=== PATIENT | male | born 1965 | race Caucasian/White ===

== ENCOUNTER → 2017-07-08 | Outpatient (CLI) | payer BC, OTHER ==
--- NOTE | 2017-07-08 13:23 | XR ---
EXAMINATION TYPE: XR chest 2V DATE OF EXAM: 07/08/2017 COMPARISON: NONE INDICATION: Cough x2 weeks short of breath TECHNIQUE: Frontal and lateral views of the chest are obtained. FINDINGS: The heart size is normal. The pulmonary vasculature is normal. The lungs are clear. IMPRESSION: 1. No acute pulmonary process.
== END | disposition home or self-care (01) ==
LOC: RADXRMAIN 11:06
PROVIDERS: ATTEND Family Medicine
DX: R05 Cough (principal); R06.02 Shortness of breath
CPT/HCPCS: 71046

== ENCOUNTER → 2018-03-29 | Outpatient (CLI) | payer BC ==
--- NOTE | 2018-03-29 17:27 | MR ---
EXAMINATION TYPE: MR cervical spine wo con DATE OF EXAM: 03/29/2018 COMPARISON: Neck pain HISTORY: Neuralgia /QURESHI/Neck pain x 1 month TECHNIQUE: Multiplanar, multisequence images of the cervical spine were acquired. C2-C3: No evidence for degenerative disc disease. No disc bulge/herniation or protrusion. No Canal stenosis. Foramina are patent bilaterally. C3-C4: Posterior broad-based disc bulge causes mild anterior mass effect on the thecal sac, small pennie tral posterior disc herniation causes only slight anterior mass effect centrally. Lateral extension o f endplate disc complex encroaches greater on the left neural foramen than right. C4-C5: Small central posterior disc herniation noted, circumferential extension of endplate disc comp chela encroaches on the foramina bilaterally, there is mild anterior mass effect on the thecal sac due to broad-based disc bulge. C5-C6: Posterior extension of endplate disc complex likely contacts anterior cervical cord. There is moderate central canal stenosis. Lateral extension of endplate disc complex causes bilateral foramina l encroachment. C6-C7: Posterior extension of endplate disc complex causes anterior mass effect on the thecal sac, la teral extension causes some foraminal encroachment bilaterally. 1 minimal spinal stenosis. C7-T1: No evidence for degenerative disc disease. No disc bulge/herniation or protrusion. No Canal stenosis. Foramina are patent bilaterally. Cervical segments are intact. There is normal alignment. Cervical spinal cord is of normal signal. Craniovertebral junction relationships are within normal limits. Cervical vertebral bodies show pre served height and alignment, there is multilevel spondylosis, endplate discogenic marrow signal delcid e, loss of disc height and signal is greatest at C5-6 and C6-7. Immediate cystic focus is present at the level of the piriform sinus on the right and shows a nonaggressive appearance. IMPRESSION: Degenerative disc disease and additional findings above.
== END | disposition home or self-care (01) ==
LOC: RADMRIMAIN 11:28
PROVIDERS: ATTEND Psychiatry & Neurology Neurology
DX: M48.02 Spinal stenosis, cervical region (principal); M50.21 Other cervical disc displacement, high cervical region; M50.30 Other cervical disc degeneration, unspecified cervical region; M47.812 Spondylosis without myelopathy or radiculopathy, cervical region
CPT/HCPCS: 72141

== ENCOUNTER 2020-03-29 09:59 | Emergency (ER) | payer BC ==
[2020-03-29 10:13] VITALS: BP 140/93; PULSE 79; RESP 18; TEMP 98.5
--- NOTE | 2020-03-29 10:24 | ED ---
Skin/Abscess/FB HPI - General Chief complaint: Skin/Abscess/Foreign Body Stated complaint: knee(bug bite infection) Time Seen by Provider: 03/29/20 10:14 Source: patient, RN notes reviewed Mode of arrival: ambulatory Limitations: no limitations - History of Present Illness Initial comments: This a 55-year-old male presents emergency Department chief complaint of infection left leg. Patient states that this started on Wednesday above his left knee. Patient states that it's increase in size of redness. He states he has no pain with range of motion of his left knee. No fevers chills no night sweats no chills. Patient states is occasionally some drainage. Patient denies any other complaints. He states he was up in [place] states that he may have been bitten by something. - Related Data Home Medications Medication Instructions Recorded Confirmed Multivitamin [Men's Multi-Vitamin] 1 tab PO DAILY 12/07/13 12/06/14 Naproxen [Naprosyn] 500 mg PO DIRECTED PRN 12/07/13 12/06/14 Previous Rx's Medication Instructions Recorded Cephalexin [Keflex] 500 mg PO Q6HR #40 cap 03/29/20 Sulfamethox-Tmp 800-160Mg [Bactrim 1 each PO Q12HR #20 tab 03/29/20 Ds] Allergies Allergy/AdvReac Type Severity Reaction Status Date / Time cats Allergy Unknown Uncoded 03/29/20 10:13 pine tree Allergy Unknown Uncoded 03/29/20 10:13 Review of Systems ROS Statement: Those systems with pertinent positive or pertinent negative responses have been documented in the HPI. ROS Other: All systems not noted in ROS Statement are negative. Past Medical History Past Medical History: Blood Disorder, Musculoskeletal Disorder Additional Past Medical History / Comment(s): STATES WAS TOLD BY DR VAZQUEZ HAS A BLOD CLOTTING DISORDER "PI" History of Any Multi-Drug Resistant Organisms: None Reported Past Surgical History: Joint Replacement, Orthopedic Surgery Additional Past Surgical History / Comment(s): ARTHROSCOPY KNEE, HEEL SPUR, ANTERIOR APPROACH RIGHT HIP TOTAL ARTHOPLASTY Past Anesthesia/Blood Transfusion Reactions: No Reported Reaction Past Psychological History: No Psychological Hx Reported Smoking Status: Never smoker Past Alcohol Use History: Occasional Past Drug Use History: None Reported General Exam Limitations: no limitations General appearance: alert, in no apparent distress Head exam: Present: atraumatic, normocephalic, normal inspection Respiratory exam: Present: normal lung sounds bilaterally. Absent: respiratory distress, wheezes, rales, rhonchi, stridor Cardiovascular Exam: Present: regular rate, normal rhythm, normal heart sounds. Absent: systolic murmur, diastolic murmur, rubs, gallop, clicks Extremities exam: Present: other (Left knee patient's full range of motion neurovascular intact superior to left knee there is small open wound with proximal mid to some is a surrounding erythema there is no tenderness the left groin, popliteal region no palpable lymph nodes) Course Vital Signs 03/29/20 10:10 Temperature 98.5 F Pulse Rate 79 Respiratory 18 Rate Blood Pressure 140/93 O2 Sat by Pulse 97 Oximetry Medical Decision Making - Medical Decision Making X-ray does not reveal any foreign body, gas within the tissue. Patient will be discharged on oral antibiotics. Patient has left leg cellulitis there is no drainable abscess. Patient was given strict return parameters and advised close follow-up next 24-48 hours. Disposition Clinical Impression: Cellulitis of left leg Disposition: HOME SELF-CARE Condition: Stable Instructions (If sedation given, give patient instructions): Cellulitis (ED) Additional Instructions: Please return to the Emergency Department if symptoms worsen or any other concerns. Prescriptions: Sulfamethox-Tmp 800-160Mg [Bactrim Ds] 1 each PO Q12HR #20 tab Cephalexin [Keflex] 500 mg PO Q6HR #40 cap Is patient prescribed a controlled substance at d/c from ED?: No Referrals: Basil Sosa DO [Primary Care Provider] - 1-2 days Time of Disposition: 10:50
--- NOTE | 2020-03-29 10:56 | XR ---
EXAMINATION TYPE: XR knee complete LT DATE OF EXAM: 03/29/2020 COMPARISON: None HISTORY: Infection pain swelling TECHNIQUE: Three-view left knee FINDINGS: There is narrowing of the medial compartment joint space. Lateral compartment joint spaces preserved. Small joint effusion may be present. No acute fractures or dislocations are evident. There is prominent soft tissue swelling over the superficial subcutaneous tissues over the patella. IMPRESSION: 1. Superficial soft tissue swelling anteriorly. 2. Mild degenerative joint changes medial compartment left knee
== END 2020-03-29 10:55 | disposition home or self-care (01) ==
LOC: EC 09:59
DX: L03.116 Cellulitis of left lower limb (principal); Z96.641 Presence of right artificial hip joint; Z91.048 Other nonmedicinal substance allergy status
CPT/HCPCS: 99283

== ENCOUNTER 2020-03-30 01:14 | Emergency (ER) | payer BC ==
[2020-03-30 01:19] VITALS: BP 121/77; PULSE 71; RESP 20; TEMP 98.2
[2020-03-30] MEDS ORDERED: CLINDAMYCIN 150 MG CAP PO STA (01:47)
--- NOTE | 2020-03-30 01:51 | ED ---
Skin/Abscess/FB HPI - General Chief complaint: Skin/Abscess/Foreign Body Stated complaint: Infected insect bite Time Seen by Provider: 03/30/20 01:23 Source: patient, family Mode of arrival: ambulatory Limitations: no limitations - History of Present Illness Initial comments: Patient is 55-year-old male presenting to emergency Department with a chief co mplaint of a skin infection. Patient states recently he was [place] [facility] and he suspecting is developed an insect bite on his left leg near the knee. Patient states he is seeing erythema developing in the region since yesterday. States he was in the emergency department earlier today and was prescribed medication. Patient reports so for years taken 3 doses of the Keflex and the infection is almost double the size. Denies any discharge from the region but there is some tenderness. States he has no pain in the knee and has full range of motion. Denies any night sweats or fevers or chills. Denies taking medication to alleviate the symptoms. - Related Data Home Medications Medication Instructions Recorded Confirmed Multivitamin [Men's Multi-Vitamin] 1 tab PO DAILY 12/07/13 12/06/14 Naproxen [Naprosyn] 500 mg PO DIRECTED PRN 12/07/13 12/06/14 Previous Rx's Medication Instructions Recorded Cephalexin [Keflex] 500 mg PO Q6HR #40 cap 03/29/20 Sulfamethox-Tmp 800-160Mg [Bactrim 1 each PO Q12HR #20 tab 03/29/20 Ds] Clindamycin HCl 300 mg PO Q6HR #28 cap 03/30/20 Allergies Allergy/AdvReac Type Severity Reaction Status Date / Time cats Allergy Unknown Uncoded 03/30/20 01:19 pine tree Allergy Unknown Uncoded 03/30/20 01:19 Review of Systems ROS Statement: Those systems with pertinent positive or pertinent negative responses have been documented in the HPI. ROS Other: All systems not noted in ROS Statement are negative. Past Medical History Past Medical History: Blood Disorder, Musculoskeletal Disorder Additional Past Medical History / Comment(s): STATES WAS TOLD BY DR VAZQUEZ HAS A BLOD CLOTTING DISORDER "PI" History of Any Multi-Drug Resistant Organisms: None Reported Past Surgical History: Joint Replacement, Orthopedic Surgery Additional Past Surgical History / Comment(s): ARTHROSCOPY KNEE, HEEL SPUR, ANTERIOR APPROACH RIGHT HIP TOTAL ARTHOPLASTY Past Anesthesia/Blood Transfusion Reactions: No Reported Reaction Past Psychological History: No Psychological Hx Reported Smoking Status: Never smoker Past Alcohol Use History: Occasional Past Drug Use History: None Reported General Exam Limitations: no limitations General appearance: alert, in no apparent distress Head exam: Present: atraumatic, normocephalic, normal inspection Eye exam: Present: normal appearance, PERRL, EOMI Pupils: Present: normal accommodation ENT exam: Present: normal exam, normal oropharynx, mucous membranes moist Neck exam: Present: normal inspection, full ROM. Absent: tenderness Respiratory exam: Present: normal lung sounds bilaterally. Absent: respiratory distress, wheezes, rales Cardiovascular Exam: Present: regular rate, normal rhythm, normal heart sounds Extremities exam: Present: full ROM, tenderness (Tenderness at the infection site.), normal capillary refill, other (+2 ulnar and radial pulses bilateral. +2 dorsalis pedis and posterior tibials laterally.). Absent: normal inspection (Cellulitis on the left knee measuring approximately 15 cm in diameter. No pustular drainage or any fluctuance. Induration in the center measuring approximately 3 cm in diameter.), pedal edema, joint swelling, calf tenderness Back exam: Present: normal inspection, full ROM. Absent: tenderness, CVA tenderness (R), CVA tenderness (L) Neurological exam: Present: alert, oriented X3, normal gait Psychiatric exam: Present: normal affect, normal mood Skin exam: Present: warm, dry, intact, normal color Course Vital Signs 03/30/20 01:15 Temperature 98.2 F Pulse Rate 71 Respiratory 20 Rate Blood Pressure 121/77 O2 Sat by Pulse 99 Oximetry Medical Decision Making - Medical Decision Making patient is a 55-year-old male presenting to the emergency department with chief complaint of a skin infection. Patient is currently on Keflex and Bactrim. I marked the infected site which apparently has increased in size since yesterday. On physical examination, this appears to cellulitis with no abscess. Patient was started on clindamycin instead advised to stop the other antibiotics. He was advised to monitor for increasing the size of infection if he goes past the marked lines. He denies any night sweats fevers or chills. Strict return parameters were thoroughly discussed the patient is attending agreeable. Case discussed with physician. Disposition Clinical Impression: Cellulitis of left leg Disposition: HOME SELF-CARE Condition: Stable Instructions (If sedation given, give patient instructions): Cellulitis (DC) Additional Instructions: Take prescribed medication as directed. Monitor for signs of infection spreading past the marked lines. Return to emergency department if symptoms worsen. Prescriptions: Clindamycin HCl 300 mg PO Q6HR #28 cap Is patient prescribed a controlled substance at d/c from ED?: No Referrals: Basil Sosa DO [Primary Care Provider] - 1-2 days Time of Disposition: 01:47
== END 2020-03-30 02:23 | disposition home or self-care (01) ==
LOC: EC 01:14
DX: L03.116 Cellulitis of left lower limb (principal); Z96.641 Presence of right artificial hip joint; Z91.048 Other nonmedicinal substance allergy status
CPT/HCPCS: 99282

== ENCOUNTER → 2020-05-08 | Outpatient (CLI) | payer BC | END | disposition home or self-care (01) | LOC: LABWHC1 13:43 | PROVIDERS: ATTEND Family Medicine | DX: Z03.818 Encounter for observation for suspected exposure to other biological agents ruled out (principal) | CPT/HCPCS: U0003; C9803 ==

== ENCOUNTER 2021-11-08 22:27 | Emergency (ER) | payer BC ==
[2021-11-08 22:58] VITALS: RESP 18
[2021-11-08] MEDS ORDERED: DIPH,PERTUS(ACELL)TETVAC-LF 0.5 ML VIAL IM ONE (23:13)
[2021-11-08] MEDS ORDERED: BACITRACIN OINT 1 EACH PACKET TOPICAL ONE (23:13)
[2021-11-08] MEDS ORDERED: LIDOCAINE 1% INJ 10MG/ML (5 ML VIAL-PF) SQ ONE (23:13)
--- NOTE | 2021-11-09 00:21 | ED ---
General Adult HPI - General Chief complaint: Wound/Laceration Stated complaint: Right hand laceration Time Seen by Provider: 11/08/21 23:00 Source: patient, RN notes reviewed Mode of arrival: ambulatory Limitations: no limitations - History of Present Illness Initial comments: 56-year-old male presents to the emergency department for evaluation of a wound to the right hand sustained this evening when he cut his hand on a piece of sheet metal. Last tetanus shot is unknown. Currently has small amount of ongoing bleeding from the wound. Denies any loss of sensation or range of motion. No other injuries. States pain is minimal. - Related Data Home Medications Medication Instructions Recorded Confirmed Multivitamin [Men's Multi-Vitamin] 1 tab PO DAILY 12/07/13 12/06/14 Naproxen [Naprosyn] 500 mg PO DIRECTED PRN 12/07/13 12/06/14 Previous Rx's Medication Instructions Recorded Cephalexin [Keflex] 500 mg PO Q6HR #40 cap 03/29/20 Sulfamethox-Tmp 800-160Mg [Bactrim 1 each PO Q12HR #20 tab 03/29/20 Ds] Clindamycin HCl 300 mg PO Q6HR #28 cap 03/30/20 Allergies Allergy/AdvReac Type Severity Reaction Status Date / Time cats Allergy Unknown Uncoded 11/08/21 22:58 pine tree Allergy Unknown Uncoded 11/08/21 22:58 Review of Systems ROS Statement: Those systems with pertinent positive or pertinent negative responses have been documented in the HPI. ROS Other: All systems not noted in ROS Statement are negative. Past Medical History Past Medical History: Blood Disorder, Musculoskeletal Disorder Additional Past Medical History / Comment(s): STATES WAS TOLD BY DR VAZQUEZ HAS A BLOD CLOTTING DISORDER "PI" History of Any Multi-Drug Resistant Organisms: MRSA Date of last positivie culture/infection: 04/01/20 MDRO Source:: KNEE Past Surgical History: Joint Replacement, Orthopedic Surgery Additional Past Surgical History / Comment(s): ARTHROSCOPY KNEE, HEEL SPUR, ANTERIOR APPROACH RIGHT HIP TOTAL ARTHOPLASTY Past Anesthesia/Blood Transfusion Reactions: No Reported Reaction Past Psychological History: No Psychological Hx Reported Smoking Status: Never smoker Past Alcohol Use History: Occasional Past Drug Use History: None Reported General Exam Limitations: no limitations (Well-developed, well-nourished male in no acute distress. Initial temperature 98.3, pulse 75, respirations 18, blood pressure 158/95, pulse ox 96% on room air.) General appearance: alert, in no apparent distress Head exam: Present: atraumatic, normocephalic Eye exam: Present: normal appearance. Absent: scleral icterus, conjunctival injection Respiratory exam: Present: normal lung sounds bilaterally. Absent: respiratory distress, wheezes, rales, rhonchi, stridor Cardiovascular Exam: Present: regular rate, normal rhythm, normal heart sounds. Absent: systolic murmur, diastolic murmur, rubs, gallop, clicks GI/Abdominal exam: Present: soft, normal bowel sounds. Absent: distended, tenderness, guarding, rebound, rigid Right Forearm Wrist exam: Present: normal inspection, full ROM. Absent: tenderness, swelling Hand Wrist exam: Present: full ROM, laceration (3.5 cm flap laceration to the dorsal surface of the right hand between the first and second metacarpals). Absent: tenderness, swelling Neuro motor exam: Present: wrist extension intact, thumb opposition intact, fingers 2-5 abduction intact Vascular: Present: normal capillary refill, radial pulse. Absent: vascular compromise, Pallo Neurological exam: Present: alert, oriented X3, CN II-XII intact Psychiatric exam: Present: normal affect, normal mood Course Vital Signs 11/08/21 11/09/21 22:57 00:40 Temperature 98.3 F 98.0 F Pulse Rate 75 68 Respiratory 18 18 Rate Blood Pressure 158/95 142/87 O2 Sat by Pulse 96 98 Oximetry Procedures - Laceration Laceration #1 Consent Obtained: verbal consent Indication: laceration Site: hand (Right) Size (cm): 3 Description: flap Depth: simple, single layer Anesthetic Used: lidocaine 1% Pre-repair: wound explored, irrigated extensively Size of Sutures: 5-0 Technique: simple, interrupted Patient Tolerated Procedure: well, no complications Additional Comments: Wound was cleansed, anesthetized, and thoroughly irrigated. No foreign body or deep structure injury noted. Edges were approximated with good alignment using 7 simple interrupted sutures. Bacitracin dressing applied. Patient tolerated procedure well. Wound care instructions and follow-up were discussed at length. Medical Decision Making - Medical Decision Making 56-year-old male with no significant past medical history presents to the emergency department for evaluation of flap laceration to the right hand. Upon exam, patient is well-appearing and in no acute distress. Distal sensation and range of motion is intact; Minimal edema. No other trauma or injury. Wound was well approximated with 7 simple interrupted sutures. Patient tolerated pro cedure well. Tetanus was updated. Bacitracin dressing applied. Wound care instructions were reviewed at length. Instructed to follow up with PCP for wound recheck next week and to have sutures removed in 7-10 days. Return parameters discussed in detail. Patient verbalizes understanding and agrees with this plan. Attending: Ryan. Disposition Clinical Impression: Laceration of right hand Disposition: HOME SELF-CARE Condition: Stable Instructions (If sedation given, give patient instructions): Care For Your Stitches (ED), Laceration (ED) Additional Instructions: Keep wound clean and dry. Cleansed gently twice daily with mild soap and water. Apply triple antibiotic ointment after cleansing. Monitored carefully for any signs of infection including increased redness, foul smelling drainage, or fever. Avoid submerging hand in contaminated/30 water. Schedule an appointment with your PCP on Wednesday for a wound recheck. Sutures to be removed in 7-10 days. Return to the emergency department with any new, worsening, or concerning symptoms. Is patient prescribed a controlled substance at d/c from ED?: No Referrals: Basil Soas DO [Primary Care Provider] - 1-2 days Time of Disposition: 00:26
[2021-11-09 00:46] VITALS: BP 142/87; PULSE 68; TEMP 98
== END 2021-11-09 00:40 | disposition home or self-care (01) ==
LOC: EC 22:27
DX: T14.90XA Injury, unspecified, initial encounter (principal); W26.8XXA Contact with other sharp object(s), not elsewhere classified, initial encounter; Z91.018 Allergy to other foods; Z91.09 Other allergy status, other than to drugs and biological substances
CPT/HCPCS: 12002; 90471; 90715; 99282

== ENCOUNTER 2024-02-08 06:00 | Day surgery (SDC) | payer BC ==
[2024-02-08] MEDS ORDERED: LACTATED RINGERS 1,000 ML BAG ONE (10:15)
[2024-02-08] MEDS ORDERED: PROPOFOL 10 MG/ML 20 ML VIAL IV ONE (10:31)
== END 2024-02-08 11:43 | disposition home or self-care (01) ==
LOC: ORWHC2ENDO 06:00
PROVIDERS: ATTEND Surgery
DX: Z12.11 Encounter for screening for malignant neoplasm of colon (principal); E78.5 Hyperlipidemia, unspecified; Z91.09 Other allergy status, other than to drugs and biological substances; Z79.82 Long term (current) use of aspirin; Z79.899 Other long term (current) drug therapy
CPT/HCPCS: 45378

== ENCOUNTER → 2024-08-08 | Outpatient (CLI) | payer OTHER ==
--- NOTE | 2024-08-08 12:01 | MR ---
EXAMINATION TYPE: MR shoulder RT wo con DATE OF EXAM: 08/08/2024 10:48 AM COMPARISON: Outside right shoulder x-ray August 01, 2024 CLINICAL INDICATION: Male, 59 years old with history of M25.511 PAIN IN RIGHT SHOULDER, Rt shoulder p ain, injury shoveling July 17 IV Contrast: cc (None if empty) TECHNIQUE: Multiplanar, multisequence imaging of the right shoulder is performed without contrast. FINDINGS: Rotator Cuff: Infraspinatus tendon intact with some adjacent fluid near the humeral head. Increased s ignal in the supraspinatus muscle bulk and tendon with prominent signal anteriorly near the humeral h ead. Subscapularis tendon is heterogeneous but intact with some adjacent fluid anteriorly. Rotator cu ff muscle bulk is preserved. Acromioclavicular Joint: At least moderate narrowing and capsular hypertrophy. No significant spurrin g. Effacement of underlying fat plane is present. Glenohumeral Joint: Small to moderate size joint effusion. No significant spurring. Narrowing is pres ent. Labrum: Heterogeneous increased signal superior labrum likely reflects degenerative tear. Biceps Tendon: The long head of biceps is in normal location within bicipital groove. Some areas of i ncreased signal intracapsular portion are present. Bone marrow signal: Subchondral cystic change at the acromioclavicular joint. Other: No additional significant abnormality is appreciated. IMPRESSION: 1. Mild tendinosis subscapularis tendon. More prominent tendinosis and/or partial tearing of the supr aspinatus tendon. 2. Fairly moderate degenerative changes are present as detailed above. Underlying impingement suspect ed. Correlate clinically. [facility], , 08/08/2024 11:59 AM
== END | disposition home or self-care (01) ==
LOC: RADMRIMAIN 09:58
PROVIDERS: ATTEND Orthopaedic Surgery
DX: M25.511 Pain in right shoulder (principal); M19.011 Primary osteoarthritis, right shoulder; M67.813 Other specified disorders of tendon, right shoulder

== ENCOUNTER → 2024-10-11 | Outpatient (CLI) | payer OTHER ==
[2024-10-11 18:08] LABS: Basophils # (A) 0.05 X 10*3/uL (0.00-0.10); Basophils % (A) 0.8 %; Eosinophils # (A) 0.38 X 10*3/uL (0.04-0.35); Eosinophils % (A) 5.8 %; HCT 42.7 % (39.6-50.0); HGB 14.9 g/dL (13.0-17.0); Lymphocytes # (A) 1.68 X 10*3/uL (0.90-5.00); Lymphocytes % (A) 25.5 %; MCH 31.2 pg (27.0-32.0); MCHC 34.9 g/dL (32.0-37.0); MCV 89.5 FL (80.0-97.0); Mean Platelet Volume 10.5 FL (9.5-12.2); Monocytes # (A) 0.65 X 10*3/uL (0.20-1.00); Monocytes % (A) 9.9 %; NRBC Per 100 WBC 0 X 10*3/uL (0.00-0.01); Neutrophils # (A) 3.81 X 10*3/uL (1.80-7.70); Neutrophils % (A) 57.8 %; Platelet Count 182 X 10*3/uL (140-440); RBC 4.77 X 10*6/uL (4.40-5.60); RDW 12.4 % (11.5-14.5); WBC 6.58 X 10*3/uL (4.50-10.00)
[2024-10-11 18:19] LABS: Anion Gap 10.6 mmol/L (4.00-12.00); Carbon Dioxide 25.4 mmol/L (21.6-31.8); Potassium 4.7 mmol/L (3.5-5.5)
== END | disposition home or self-care (01) ==
LOC: LABWHC1 14:24
PROVIDERS: ATTEND Orthopaedic Surgery
DX: Z01.818 Encounter for other preprocedural examination (principal); M75.41 Impingement syndrome of right shoulder
CPT/HCPCS: 36415; 80051; 85025; 93005

== ENCOUNTER 2024-10-19 05:46 | Day surgery (SDC) | payer OTHER ==
--- NOTE | 2024-10-18 23:06 | HP ---
HISTORY AND PHYSICAL DATE OF SURGERY: 10/19/2024. HISTORY OF PRESENT ILLNESS: Christopher Jones is a 59-year-old gentleman seen with progressive right shoulder pain. We discussed options regarding treatment. He elected to proceed with right shoulder arthroscopy. Consent was obtained. PAST MEDICAL HISTORY: Hyperlipidemia. PAST SURGICAL HISTORY: Right knee surgery, right total hip arthroplasty. DAILY MEDICATIONS: 1. Naprosyn. 2. Rosuvastatin. 3. Multivitamin. ALLERGIES: None. SOCIAL HISTORY: Denies tobacco use. PHYSICAL EVALUATION OF THE RIGHT SHOULDER: Flexion is 100 degrees. Abduction is 90 degrees. External rotation is 40 degrees with weakness and pain. Tenderness along the anterolateral acromion, glenohumeral joint, acromioclavicular joint, as well as rotator cuff tendon, and long head biceps tendon. Impingement is positive at 90 degrees. Cross body adduction sign is positive. Apprehension sign is positive. Drop-arm sign is positive. Distal neurovascular exam is intact. IMAGING STUDIES: Right shoulder radiographs revealed a partial rotator cuff tendon tear, acromioclavicular joint osteoarthritis, knee degenerative labral tear. IMPRESSION: 1. Right shoulder impingement with partial rotator cuff tear. 2. Right shoulder acromioclavicular joint osteoarthritis. 3. Right shoulder labral tear. PLAN: Right shoulder arthroscopy with rotator cuff repair, subacromial decompression, Damaris procedure and debridement. MMODL / IJN: [id number] /
[2024-10-19] MEDS: DEXAMETHASONE SOD PHOSPHATE 4 MG/ML 1 ML VIAL IV ONE (06:42)
[2024-10-19] MEDS: LACTATED RINGERS 1,000 ML IV SCH (06:42)
[2024-10-19] MEDS: ONDANSETRON 4 MG/2 ML VIAL IVP ONE (06:42)
[2024-10-19] MEDS: IV FLUID CONTINUATION 1,000 ML IV ONE (06:45)
[2024-10-19] MEDS: MIDAZOLAM 2 MG/2 ML VIAL IV ONE (06:50)
[2024-10-19] MEDS ORDERED: HYDROmorphone 0.5 MG/0.5 ML SYRINGE IVP PRN (07:00)
[2024-10-19] MEDS ORDERED: LIDOCAINE 1% INJ 10MG/ML (20 ML MDV) ONE (07:22)
[2024-10-19] MEDS ORDERED: KETOROLAC 15 MG/ML 1 ML VIAL ONE (07:22)
[2024-10-19] MEDS ORDERED: PROPOFOL 10 MG/ML 20 ML VIAL IV ONE (07:22)
[2024-10-19] MEDS ORDERED: fentaNYL (PF) 50 MCG/ML 2 ML AMP ONE (07:22)
[2024-10-19] MEDS ORDERED: DEXAMETHASONE SOD PHOSPHATE 4 MG/ML 1 ML VIAL ONE (07:22)
[2024-10-19] MEDS ORDERED: MIDAZOLAM 2 MG/2 ML VIAL ONE (07:22)
[2024-10-19] MEDS ORDERED: ROPIVACAINE 5 MG/ML 30 ML VIAL ONE (07:22)
[2024-10-19] MEDS ORDERED: LIDOCAINE 4% LTA KIT (4 ML) TOPICAL ONE (07:22)
[2024-10-19] MEDS ORDERED: SUCCINYLCHOLINE CHLORIDE 200 MG/10 ML VIAL IV ONE (07:22)
[2024-10-19] MEDS: ceFAZolin 2 GM in DEXTROSE 5% IN WATER 50 ML IVPB PRN (07:27)
[2024-10-19] MEDS: LACTATED RINGERS 1,000 ML IV ONE (09:05)
[2024-10-19 09:24] VITALS: TEMP 97
--- NOTE | 2024-10-19 09:29 | P.OP ---
Date of Procedure: 10/19/24 Preoperative Diagnosis: Right shoulder impingement Postoperative Diagnosis: 1. Right shoulder rotator cuff tear 2. Right shoulder impingement 3. Right shoulder partial long head biceps tendon tear 4. Right shoulder acromioclavicular joint osteoarthritis 5. Right shoulder superficial labral tear Procedure(s) Performed: 1. Right shoulder arthroscopic rotator cuff repair 2. Right shoulder arthroscopic subacromial decompression 3. Right shoulder arthroscopic biceps tenodesis 4. Right shoulder arthroscopic Damaris procedure 5. Right shoulder arthroscopic debridement labral tear Implants: 5Arthrex 4.75 swivel lock anchors Anesthesia: GETA, regional (Interscalene block) Surgeon: Mann Schroeder Crystal Gazer #1: Thai Das Estimated Blood Loss (ml): 8 Pathology: none sent Condition: stable Disposition: PACU Indications for Procedure: 59-year-old patient seen with progressive right shoulder pain. After having treatment options discussed, he elected to proceed with arthroscopy. Operative Findings: See description of procedure Description of Procedure: Patient underwent an interscalene block by department of anesthesia. The patient was then taken to the operative suite. The patient underwent a general anesthetic by the department of anesthesia. The patient was placed into a lateral position and secured. There was appropriate padding of the bony prominence. Right shoulder was then prepped and draped in normal sterile orthopedic fashion. We placed the extremity in 10 pounds of longitudinal traction. A posterior incision was now made for a posterior working portal site. The trocar and cannula were inserted into the glenohumeral joint. Arthroscopy was initiated. Spinal needle was now inserted anteriorly, to ascertain the anterior working portal site. An incision was now made in that area, a trocar was inserted followed by a probe. There was some superficial tearing of the superior labrum. There was partial tearing long head biceps tendon. There was an obvious large rotator cuff tear could visualize from the glenohumeral joint. There was no significant chondromalacia present. I used a motorized shaver and debrided out the superficial labral tear. I introduced the cannula through the anterior portal site. I passed a loop and tack stitch through the biceps tendon and then release it from the superior labral anchor. With the assistance of Brian ARTHUR I punched a hole at the interval. I now passed the suture limb through the eyelet of an Arthrex 4.75 swivel lock anchor. I now placed the eyelet into the prepunch hole. I held that in position while Brian ARTHUR tensioned the suture and deployed the anchor with good fixation noted. The residual suture limb was now clipped. We had a stable appearing biceps te nodesis. Instruments were now removed from the glenohumeral joint. Utilizing the posterior working portal site, the trocar and cannula were inserted into the subacromial space. Arthroscopy initiated. I made an incision 2 fingerbreadths lateral to the acromion. I introduced my trocar followed by my ArthroCare ablator. I now began ablating thick subacromial bursal tissue, which exposed the undersurface of the anterior acromion. There was diminished subacromial space. There was a very prominent anterior acromion. A motorized bur was introduced and a subacromial decompression was performed. I also excised some osteophytes off the inferior aspect of the distal clavicle. The AC joint was visualized and noted to be fairly arthritic. The motorized bur was introduced in the anterior portal site and a Damaris procedure was performed without difficulty, decompressing the AC joint nicely. I turned my attention to the rotator cuff. There was a 2.5 cm rotator cuff tear. I debrided the margins getting down to stable tendon tissue. I introduced my motorized bur and abraded the footprint area, getting some petechial bleeding. I now made an accessory portal site off the lateral aspect of the acromion. I punched to holes medial for medial row fixation with the assistance of Brian ARTHUR carefully tapping the punch with a mallet as I held the punch and the camera. I now introduced both anchors into the pre-punched holes and Brian ARTHUR tapped them with the mallet as I held anchors and the camera. Brian ARTHUR now screwed the anchors in place a while I held the anchor guide and camera. All 8 limbs of suture were now passed through good bites of rotator cuff tendon. I now punched 2 holes for lateral row fixation again I held the punch and camera while Brian ARTHUR used a mallet to tap in the punch. We now passed sutures through both anchors and individually I introduced the anchors into the pre-punch holes I held the anchor guide in position with one hand holding the camera with the other hand while Brian ARTHUR tensioned the sutures and screwed in the anchors one at a time. All residual suture limbs were now clipped. We had good compression of the tendon along the entire footprint. Instruments now removed from the portal sites. All portal sites were approximated with nylon suture. Sterile dressings were applied followed by a shoulder immobilizer. Thai ARTHUR assisted in this complex case. The patient was awakened, transferred to a bed, and taken to recovery in stable condition.
[2024-10-19 10:57] VITALS: PULSE 71; RESP 16
[2024-10-19 11:07] VITALS: BP 122/78
--- NOTE | 2024-10-19 18:30 | P.ANPRN ---
Procedure Note - Anesthesia - Nerve Block Performed Right Interscalene Single Time Out Performed: Yes Date of Procedure: 10/19/24 Procedure Start Time: 06:50 Procedure Stop Time: 06:54 Location of Patient: PreOp Indication: Acute Post-Operative Pain, Requested by Surgeon Sedation Type: Sedate with meaningful contact maintained Preparation: Sterile Prep Position: Supine Needle Types: Pajunk Needle Gauge: 21 Ultrasound used to visualize needle placement: Yes Ultrasound used to observe medication spread: Yes Blood Aspirated: No Pain Paresthesia on Injection Noted: No Resistance on Injection: Normal Image Stored and Saved: Yes Events: Uneventful and Well Tolerated (ropi .5% 20cc plus dexamethasone 4mg)
== END 2024-10-19 11:27 | disposition home or self-care (01) ==
LOC: OR 05:46
PROVIDERS: ATTEND Orthopaedic Surgery
DX: M75.111 Incomplete rotator cuff tear or rupture of right shoulder, not specified as traumatic (principal); S46.111A Strain of muscle, fascia and tendon of long head of biceps, right arm, initial encounter; M19.011 Primary osteoarthritis, right shoulder; S43.431A Superior glenoid labrum lesion of right shoulder, initial encounter; M25.811 Other specified joint disorders, right shoulder; G89.18 Other acute postprocedural pain; E78.5 Hyperlipidemia, unspecified; M19.90 Unspecified osteoarthritis, unspecified site; Z79.82 Long term (current) use of aspirin; Z79.1 Long term (current) use of non-steroidal anti-inflammatories (NSAID); Z79.899 Other long term (current) drug therapy; X58.XXXA Exposure to other specified factors, initial encounter
CPT/HCPCS: 29827; 29828; 29826; 29824; 64415; C1713 ×3; J2250; J0330; J1100; J0690; J2405; J2003; J3010; J2795; J1885; J2704

== ENCOUNTER 2024-10-22 19:22 | Emergency (ER) | payer OTHER ==
[2024-10-22 19:36] VITALS: RESP 18
--- NOTE | 2024-10-22 20:39 | US ---
EXAMINATION TYPE: US venous doppler duplex UE RT DATE OF EXAM: 10/22/2024 COMPARISON: NONE CLINICAL INDICATION: Male, 59 years old with history of Recent surgery, RUE pain/ecchymosis; rotator cuff surgery 3 days ago, bruising ner medial elbow, h/o DVT prior in legs and lungs TECHNIQUE: Grayscale, color Doppler and spectral Doppler imaging of the upper extremity. SIDE PERFORMED: Right VESSELS IMAGED: IJV Subclavian Vein Axilla Vein Brachial Vein(s) Radial Paired Veins Ulnar Paired Veins Cephalic Vein* Basilic Vein* (*superficial vessels) FINDINGS: Right Arm: Negative for DVT Grayscale, color doppler, spectral doppler imaging performed of the deep veins of the upper extremiti es. IMPRESSION: No evidence for DVT. [facility], , 10/22/2024 8:36 PM
--- NOTE | 2024-10-22 20:51 | ED ---
General Adult HPI - General Chief complaint: Extremity Injury, Upper Stated complaint: R Arm Pain Time Seen by Provider: 10/22/24 19:37 Source: patient Mode of arrival: ambulatory Limitations: no limitations - History of Present Illness Initial comments: This is a 59-year-old male presenting for right bicep pain/bruising (10/12) x 2 days. Patient endorses surgery for his right rotator cuff x 4 days ago prior to start of symptoms. Patient endorses history of hygiene and is requesting coag studies, stating he only takes ASA 81 and otherwise does not take blood thinners. Patient Dors is concern for DVT due to immobilization of extremity in sling and recent surgery. Denies fever, chills, chest pain, dyspnea, hemoptysis, swelling in lower extremities. Onset/Timin -: days(s) Associated Symptoms: denies other symptoms Treatments Prior to Arrival: none - Related Data Home Medications Medication Instructions Recorded Confirmed Multivitamin [Men's Multi-Vitamin] 1 tab PO DAILY 12/07/13 10/16/24 Naproxen [Naprosyn] 500 mg PO DIRECTED PRN 12/07/13 10/16/24 Aspirin [Adult Low Dose Aspirin EC] 81 mg PO DAILY 02/04/24 10/16/24 Rosuvastatin [Crestor] 10 mg PO HS 02/04/24 10/19/24 tadalafiL [Cialis] 20 mg PO DAILY PRN 02/04/24 10/19/24 Previous Rx's Medication Instructions Recorded HYDROcodone/APAP 7.5-325MG [[place] 1 each PO Q6HR PRN #28 tab 10/19/24 7.5] Allergies Allergy/AdvReac Type Severity Reaction Status Date / Time cats Allergy Unknown Uncoded 10/22/24 19:36 pine tree Allergy Unknown Uncoded 10/22/24 19:36 Review of Systems ROS Statement: Those systems with pertinent positive or pertinent negative responses have been documented in the HPI. ROS Other: All systems not noted in ROS Statement are negative. Past Medical History Past Medical History: Blood Disorder, Deep Vein Thrombosis (DVT), Hyper lipidemia, Musculoskeletal Disorder, Osteoarthritis (OA), Pulmonary Embolus (PE) Additional Past Medical History / Comment(s): STATES WAS TOLD BY DR VAZQUEZ HAS A BLOOD CLOTTING DISORDER "PI"; NICOLE DVT & NICOLE PE AFTER ORTHOPEDIC SURG History of Any Multi-Drug Resistant Organisms: MRSA Date of last positivie culture/infection: 04/01/20 MDRO Source:: KNEE Past Surgical History: Joint Replacement, Orthopedic Surgery Additional Past Surgical History / Comment(s): LT KNEE ATHROSCOPY X2 & RT KNEE ARTHROSCOPY, HEEL SPUR, ANTERIOR APPROACH RIGHT HIP TOTAL ARTHOPLASTY Past Anesthesia/Blood Transfusion Reactions: No Reported Reaction Past Psychological History: No Psychological Hx Reported Smoking Status: Never smoker Past Alcohol Use History: Occasional Past Drug Use History: None Reported General Exam Limitations: no limitations General appearance: alert, in no apparent distress Head exam: Present: atraumatic, normocephalic, normal inspection Eye exam: Present: normal appearance, PERRL, EOMI. Absent: scleral icterus, conjunctival injection, periorbital swelling ENT exam: Present: normal exam, mucous membranes moist Neck exam: Present: normal inspection. Absent: tenderness, meningismus, lymphadenopathy Respiratory exam: Present: normal lung sounds bilaterally. Absent: respiratory distress, wheezes, rales, rhonchi, stridor Cardiovascular Exam: Present: regular rate, normal rhythm, normal heart sounds. Absent: systolic murmur, diastolic murmur, rubs, gallop, clicks GI/Abdominal exam: Present: soft, normal bowel sounds. Absent: distended, tenderness, guarding, rebound, rigid Extremities exam: Present: normal inspection, full ROM, normal capillary refill. Absent: tenderness, pedal edema, joint swelling, calf tenderness Back exam: Present: normal inspection Neurological exam: Present: alert, oriented X3, CN II-XII intact Psychiatric exam: Present: normal affect, normal mood Skin exam: Present: warm, dry, intact, other (Diffuse ecchymosis noted on medial aspect of right elbow without significant tenderness, warmth or surrounding erythema). Absent: rash Course Vital Signs 10/22/24 10/22/24 19:33 21:11 Temperature 98.0 F 98.2 F Pulse Rate 71 74 Respiratory 18 18 Rate Blood Pressure 145/93 144/98 O2 Sat by Pulse 98 97 Oximetry Medical Decision Making - Medical Decision Making Was pt. sent in by a medical professional or institution (, PA, FULL STACK PHP DEVELOPER, urgent care, hospital, or snf...) When possible be specific @ -[No] Did you speak to anyone other than the patient for history (EMS, parent, family, police, friend...)? What history was obtained from this source @ -[No] Did you review nursing and triage notes (agree or disagree)? Why? @ -[I reviewed and agree with nursing and triage notes] Were old charts reviewed (outside hosp., previous admission, EMS record, old EKG, old radiological studies, urgent care reports/EKG's, snf records)? Report findings @ -[No old charts were reviewed] Differential Diagnosis (chest pain, altered mental status, abdominal pain women, abdominal pain men, vaginal bleeding, weakness, fever, dyspnea, syncope, headache, dizziness, GI bleed, back pain, seizure, CVA, palpatations, mental health, musculoskeletal)? @ -Differential Musculoskeletal Muscular strain, contusion, ligament sprain, fracture, arthritis, septic arthritis, bursitis, cellulitis, muscle spasm, nerve compression, DVT, arterial occlusion, herpes zoster, electrolyte abnormality, tumor.... This is not meant to be in all inclusive list EKG interpreted by me (3pts min.). @ -Not done X-rays interpreted by me (1pt min.). @ -[None done] CT interpreted by me (1pt min.). @ -[None done] U/S interpreted by me (1pt. min.). @ -[None done] What testing was considered but not performed or refused? (CT, X-rays, U/S, labs)? Why? @ -[None] What meds were considered but not given or refused? Why? @ -[None] Did you discuss the management of the patient with other professionals (professionals i.e. , PA, FULL STACK PHP DEVELOPER, lab, RT, psych nurse, social media intern, senior support engineer, teacher, enforcement safety officer, supervisor case loading)? Give summary @ -[No] Was smoking cessation discussed for >3mins.? @ -[No] Was critical care preformed (if so, how long)? @ -[No] Were there social determinants of health that impacted care today? How? ( Homelessness, low income, unemployed, alcoholism, drug addiction, transportation, low edu. Level, literacy, decrease access to med. care, fpc, rehab)? @ -[No] Was there de-escalation of care discussed even if they declined (Discuss DNR or withdrawal of care, Hospice)? DNR status @ -[No] What co-morbidities impacted this encounter? (DM, HTN, Smoking, COPD, CAD, Cancer, CVA, ARF, Chemo, Hep., AIDS, mental health diagnosis, sleep apnea, morbid obesity)? @ -[None] Was patient admitted / discharged? Hospital course, mention meds given and route, prescriptions, significant lab abnormalities, going to OR and other pertinent info. @ -[hospital course] Undiagnosed new problem with uncertain prognosis? @ -[No] Drug Therapy requiring intensive monitoring for toxicity (Heparin, Nitro, Insulin, Cardizem)? @ -[No] Were any procedures done? @ -[No] Diagnosis/symptom? @ -Dependent ecchymosis Acute, or Chronic, or Acute on Chronic? @ -Acute Uncomplicated (without systemic symptoms) or Complicated (systemic symptoms)? @ -Uncomplicated Side effects of treatment? @ -[No] Exacerbation, Progression, or Severe Exacerbation? @ -[No] Poses a threat to life or bodily function? How? (Chest pain, [place], [place], pneumonia, PE, COPD, DKA, ARF, appy, cholecystitis, CVA, Diverticulitis, Homicidal, Suicidal, threat to staff... and all critical care pts) @ -[No] - Lab Data Lab Results 10/22/24 Range/Units 20:48 PT 10.2 (10.0-12.5) sec INR 0.9 (<1.2) APTT 22.9 (22.0-30.0) sec Disposition Clinical Impression: Ecchymosis Disposition: HOME SELF-CARE Condition: Good Instructions (If sedation given, give patient instructions): Ecchymosis (ED) Additional Instructions: Follow-up with PCP/orthopedics for any ongoing concerns. Is patient prescribed a controlled substance at d/c from ED?: No Referrals: Basil Sosa DO [Primary Care Provider] - 1-2 days Time of Disposition: 20:51
[2024-10-22 21:10] LABS: INR 0.9 (<1.2); Partial Thromboplastin Time 22.9 sec (22.0-30.0); Prothrombin Time 10.2 sec (10.0-12.5)
[2024-10-22 21:22] VITALS: BP 144/98; PULSE 74; TEMP 98.2
== END 2024-10-22 21:11 | disposition home or self-care (01) ==
LOC: EC 19:22
DX: S50.01XA Contusion of right elbow, initial encounter (principal); Z91.09 Other allergy status, other than to drugs and biological substances; X58.XXXA Exposure to other specified factors, initial encounter
CPT/HCPCS: 36415; 85610; 85730; 99284